=== PATIENT | female | born 1965 | race Caucasian/White ===

== ENCOUNTER 2018-05-06 18:04 | Emergency (ER) | payer BC ==
[2018-05-06] MEDS ORDERED: Sodium Chloride 0.9% 10 ML Syringe FLUSH PRN (19:33)
[2018-05-06] MEDS ORDERED: Alum Hydrox/Mag Hydrox/Simeth 30 ML, Lidocaine 2% 15 ML PO ONE ×2 (19:34)
--- NOTE | 2018-05-06 19:42 | EDM.PDOC ---
ED HPI GENERAL MEDICAL PROBLEM - General Chief Complaint: Abdominal Pain Stated Complaint: ABDOMINAL AND BACK PAIN Time Seen by Provider: 05/06/18 19:23 Source of Information: Reports: Patient History Limitations: Reports: No Limitations - History of Present Illness INITIAL COMMENTS - FREE TEXT/NARRATIVE: Patient is a 53-year-old female presents ED complaining of diarrhea for the past 3 days. States today she's only had 2 bowel movements. The last 2 days she' s had 10-12 episodes. Low volume with no blood present. Denies any ingestion of bad or questionable food, recent out of country travel, or recent sick exposures. She does have a history constipation and notes this has been a chronic issue for the past 15 years. She stopped taking MiraLAX approximately 2 weeks ago since it was not really working. In addition she's been having some epigastric tenderness with bloating. This is chronic as well. Also developed some mid thoracic back discomfort between her shoulders. States the back discomfort has been present for the past few months. Comes and goes most notably worse with constipation. As for the abdominal complaints and constipation there is nothing new. Normally her stools are hard but do waxing wane with diarrhea. States discomforts are getting slightly worse. She denies any acid reflux. There is no fever or chills. No nausea or vomiting. Skin no blood in her stools. Patient has not been following up with her PCP. 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 She also denies any recent antibiotic use. She has a history of hand swelling and thus is on HCTZ. She's had her gallbladder removed. She's had a tubal ligation. Colonoscopy in July 2018 with nothing found. She does not smoke. Alcohol use is minimal. Recreational drug use none. Upper Back Pain Score (Numeric/FACES): 9 - Related Data Allergies Allergy/AdvReac Type Severity Reaction Status Date / Time Penicillins Allergy Cannot Verified 05/06/18 20:06 Remember Home Meds: Home Meds Water Pill. 1 tab PO DAILY 05/06/18 [History] Past Medical History Gastrointestinal History: Reports: Irritable Bowel Syndrome Other [employer] History: tubes tied - Infectious Disease History Infectious Disease History: Reports: Chicken Pox - Past Surgical History GI Surgical History: Reports: Colonoscopy, EGD Other GI Surgeries/Procedures: colonoscopy january 2018 Social & Family History - Family History Family Medical History: Noncontributory - Tobacco Use Smoking Status *Q: Never Smoker Second Hand Smoke Exposure: No - Caffeine Use Caffeine Use: Reports: None - Alcohol Use Days Per Week of Alcohol Use: 1 Number of Drinks Per Day: 1 Total Drinks Per Week: 1 - Recreational Drug Use Recreational Drug Use: No ED ROS GENERAL - Review of Systems Review Of Systems: ROS reveals no pertinent complaints other than HPI. Constitutional: Reports: No Symptoms HEENT: Reports: No Symptoms Respiratory: Denies: Shortness of Breath, Wheezing, Pleuritic Chest Pain, Cough , Sputum, Hemoptysis Cardiovascular: Reports: No Symptoms GI/Abdominal: Reports: Abdominal Pain, Constipation, Diarrhea, Distension, Flatus, Nausea. Denies: Black Stool, Bloody Stool, Decreased Appetite, Difficulty Swallowing, Hematemesis, Hematochezia, Vomiting : Reports: No Symptoms Musculoskeletal: Reports: Back Pain (mid thoracic back pain) Skin: Reports: No Symptoms Neurological: Reports: No Symptoms ED EXAM, GI/ABD - Physical Exam Exam: See Below Exam Limited By: No Limitations General Appearance: Alert, WD/WN, No Apparent Distress Ears: Hearing Grossly Normal Nose: Normal Inspection Throat/Mouth: Normal Voice, No Airway Compromise Neck: Normal Inspection, Supple Respiratory/Chest: No Respiratory Distress, Lungs Clear, Normal Breath Sounds, Chest Non-Tender Cardiovascular: Normal Peripheral Pulses, Regular Rate, Rhythm GI/Abdominal Exam: Soft, Non-Tender, No Organomegaly, No Distention, Abnormal Bowel Sounds (hyperactive) Back Exam: Normal Inspection. No: CVA Tenderness (L), CVA Tenderness (R) Extremities: Normal Inspection, Normal Range of Motion, Non-Tender Neurological: Alert, Oriented, CN II-XII Intact, Normal Cognition, No Motor/ Sensory Deficits Psychiatric: Normal Affect, Normal Mood Skin Exam: Warm, Dry, Intact, Normal Color Course - Vital Signs Last Recorded V/S: Last Vital Signs Temp 98.8 F 05/06/18 18:07 Pulse 74 05/06/18 18:07 Resp 20 05/06/18 18:07 BP 126/81 05/06/18 18:07 Pulse Ox 99 05/06/18 18:07 - Orders/Labs/Meds Orders: Active Orders 24 hr Category Date Time Status EKG 12 Lead [EKG Documentation Completion] [RC] STAT Care 05/06/18 19:33 Active Peripheral IV Care [RC] . DIRECTED Care 05/06/18 19:33 Active Abdomen Series w Chest 1V [CR] Stat Exams 05/06/18 19:35 Taken Peripheral IV Insertion Adult [OM.PC] Routine Oth 05/06/18 19:33 Ordered Labs: Laboratory Tests 05/06/18 05/06/18 05/06/18 Range/Units 19:59 19:59 19:59 WBC 9.25 (3.98-10.04) K/mm3 RBC 4.23 (3.98-5.22) M/mm3 Hgb 12.6 (11.2-15.7) gm/L Hct 36.8 (34.1-44.9) % MCV 87.0 (79.4-94.8) fl MCH 29.8 (25.6-32.2) pg MCHC 34.2 (32.2-35.5) g/dl RDW Std Deviation 41.4 (36.4-46.3) fL Plt Count 378 H (182-369) K/mm3 MPV 9.6 (9.4-12.3) fl Neutrophils % (Manual) 56 (40-60) % Band Neutrophils % 0 (0-10) % Lymphocytes % (Manual) 35 (20-40) % Atypical Lymphs % 4 % Monocytes % (Manual) 4 (2-10) % Eosinophils % (Manual) 1 (0.7-5.8) % Basophils % (Manual) 0 L (0.1-1.2) Platelet Estimate Adequate Plt Morphology Comment Normal RBC Morph Comment Normal Sodium 140 (136-145) mEq/L Potassium 3.3 L (3.5-5.1) mEq/L Chloride 104 (98-107) mEq/L Carbon Dioxide 25 (21-32) mEq/L Anion Gap 14.3 (5-15) BUN 14 (7-18) mg/dL Creatinine 0.9 (0.55-1.02) mg/dL Est Cr Clr Drug Dosing 59.80 mL/min Estimated GFR (MDRD) > 60 (>60) mL/min BUN/Creatinine Ratio 15.6 (14-18) Glucose 91 (74-106) mg/dL Calcium 8.9 (8.5-10.1) mg/dL Total Bilirubin 0.2 (0.2-1.0) mg/dL AST 15 (15-37) U/L ALT 23 (14-59) U/L Alkaline Phosphatase 45 L (46-116) U/L Troponin I < 0.017 (0.00-0.056) ng/mL C-Reactive Protein 3.7 H* (<1.0) mg/dL Total Protein 7.3 (6.4-8.2) g/dl Albumin 3.2 L (3.4-5.0) g/dl Globulin 4.1 gm/dL Albumin/Globulin Ratio 0.8 L (1-2) Lipase 185 (73-393) U/L TSH 3rd Generation 4.444 H (0.358-3.74) uIU/mL Urine Color (Yellow) Urine Appearance (Clear) Urine pH (5.0-8.0) Ur Specific Sawyer (1.005-1.030) Urine Protein (Negative) Urine Glucose (UA) (Negative) Urine Ketones (Negative) Urine Occult Blood (Negative) Urine Nitrite (Negative) Urine Bilirubin (Negative) Urine Urobilinogen (0.2-1.0) Ur Leukocyte Esterase (Negative) Urine RBC (0-5) /hpf Urine WBC (0-5) /hpf Ur Epithelial Cells (0-5) /hpf Urine Bacteria (FEW) /hpf Urine Mucus (FEW) /hpf 05/06/18 Range/Units 20:41 WBC (3.98-10.04) K/mm3 RBC (3.98-5.22) M/mm3 Hgb (11.2-15.7) gm/L Hct (34.1-44.9) % MCV (79.4-94.8) fl MCH (25.6-32.2) pg MCHC (32.2-35.5) g/dl RDW Std Deviation (36.4-46.3) fL Plt Count (182-369) K/mm3 MPV (9.4-12.3) fl Neutrophils % (Manual) (40-60) % Band Neutrophils % (0-10) % Lymphocytes % (Manual) (20-40) % Atypical Lymphs % % Monocytes % (Manual) (2-10) % Eosinophils % (Manual) (0.7-5.8) % Basophils % (Manual) (0.1-1.2) Platelet Estimate Plt Morphology Comment RBC Morph Comment Sodium (136-145) mEq/L Potassium (3.5-5.1) mEq/L Chloride (98-107) mEq/L Carbon Dioxide (21-32) mEq/L Anion Gap (5-15) BUN (7-18) mg/dL Creatinine (0.55-1.02) mg/dL Est Cr Clr Drug Dosing mL/min Estimated GFR (MDRD) (>60) mL/min BUN/Creatinine Ratio (14-18) Glucose (74-106) mg/dL Calcium (8.5-10.1) mg/dL Total Bilirubin (0.2-1.0) mg/dL AST (15-37) U/L ALT (14-59) U/L Alkaline Phosphatase (46-116) U/L Troponin I (0.00-0.056) ng/mL C-Reactive Protein (<1.0) mg/dL Total Protein (6.4-8.2) g/dl Albumin (3.4-5.0) g/dl Globulin gm/dL Albumin/Globulin Ratio (1-2) Lipase (73-393) U/L TSH 3rd Generation (0.358-3.74) uIU/mL Urine Color Yellow (Yellow) Urine Appearance Clear (Clear) Urine pH 6.0 (5.0-8.0) Ur Specific Sawyer > or = 1.030 (1.005-1.030) Urine Protein Negative (Negative) Urine Glucose (UA) Negative (Negative) Urine Ketones Negative (Negative) Urine Occult Blood Negative (Negative) Urine Nitrite Negative (Negative) Urine Bilirubin Negative (Negative) Urine Urobilinogen 0.2 (0.2-1.0) Ur Leukocyte Esterase Negative (Negative) Urine RBC 0-5 (0-5) /hpf Urine WBC 0-5 (0-5) /hpf Ur Epithelial Cells 0-5 (0-5) /hpf Urine Bacteria Few (FEW) /hpf Urine Mucus Many H (FEW) /hpf Meds: Medications Discontinued Medications Generic Name Dose Route Start Last Admin Trade Name Freq PRN Reason Stop Dose Admin Al Hydroxide/Mg Hydroxide 30 0 ml 05/06/18 19:34 05/06/18 20:05 ml/ Lidocaine HCl 15 ml PO 05/06/18 19:35 45 ml ONETIME ONE Administration Sodium Chloride 10 ml 05/06/18 19:33 05/06/18 20:06 Saline Flush FLUSH 10 ml ASDIRECTED PRN Administration Keep Vein Open - Re-Assessments/Exams Free Text/Narrative Re-Assessment/Exam: IV established. Initial labs will include: CBC, chem 14, troponin, CRP, lipase, UA, Chest/abdomen series, and EKG. EKG: Sinus rhythm rate of 67. No acute ST changes noted. CHEST x-ray: No acute findings noted. Reviewed with Dr. Alvarenga. Abdominal x-ray: Non specific air and stool pattern. Few air fluid levels present within in normal limits. Reviewed with Dr. Alvarenga. 05/06/18 2100 Reassessment, patient's symptoms are improving. States the back discomfort persists. With palpation pain does improve with palpation along the thoracic spine. No soft tissue swelling, no bruising, no bony abnormalities noted. With further discussion patient states she's been getting massages every day and performing stretches for her back. Pain does worsen with bending over and working at her computer for extended periods of time. She's been seen multiple times for this. In addition on examination her abdomen is soft nontender with hyperactive bowel sounds. I did discuss results of labs and x- ray with the patient. She'll continue on her MiraLAX as previously instructed. She's had no bowel movements with examination here in the ED. Low probability related to C. difficile, and/or other infectious pathogens. She has no previous history exposure. Denies any history of drinking bad water. She will be her for the next 3 months. I have asked her to follow up with PCP locally and establish medical care. She was questioning options for being evaluated by a GI specialist. I advised her to call and make an appt with a GI specialists at [facility] or [facility] of her choosing. Patient admits this a chronic issue with unclear etiology. We discussed IBS to which at one point she was diagnosed with IBS. She's currently on no medications. Patient will be discharged home with instructions as documented. The patient remained hemodynamically stable while under my care in the E.D. I discussed the concerning symptoms for which to returnto the E.D. with the patient. The patient verbalized understanding. All questions were answered. Departure - Departure Time of Disposition: 21:21 Disposition: Home, Self-Care 01 Condition: Good Clinical Impression: Elevated TSH Abdominal pain Qualifiers: Abdominal location: generalized Qualified Code(s): R10.84 - Generalized abdominal pain Diarrhea Qualifiers: Diarrhea type: unspecified type Qualified Code(s): R19.7 - Diarrhea, unspecified Constipation Qualifiers: Constipation type: unspecified constipation type Qualified Code(s): K59.00 - Constipation, unspecified Chronic thoracic back pain Qualifiers: Back pain laterality: midline Qualified Code(s): M54.6 - Pain in thoracic spine - Discharge Information Instructions: Abdominal Pain, Adult, Back Pain, Adult, Constipation, Adult, [id number], Back Exercises, Diet for Irritable Bowel Syndrome, Chronic Pain, Adult, Diarrhea, Adult, [id number], Irritable Bowel Syndrome, Adult Referrals: PCP,Not In Area [Primary Care Provider] - Forms: ED Department Discharge Additional Instructions: Do not have a clear etiology to her current complaint. Diarrhea appears to be improving. Pain to her abdomen and thoracic back is chronic with no clear etiology. Please follow up with a PCP here locally in established medical care. May call a GI specialist in [place] at [facility] or [place] of your choosing and schedule appointment for evaluation. Suggest sticking with MiraLAX one capful every day with juice. Push the fluids. Eat a diet high in fiber. Refrain from any activities that cause worsening discomfort. Continue to utilize massage, stretches, strengthening exercises, and [id number] medications for pain. Return to the ED if you develop any new or worsening symptoms. In addition your TSH levels were elevated suggesting he may have hypothyroidism. This can contribute to losing your hair, constipation, being cold, and fatigue. See your PCP for treatment. - My Orders Last 24 Hours: My Active Orders 05/06/18 19:33 EKG 12 Lead [EKG Documentation Completion] [RC] STAT Peripheral IV Care [RC] . DIRECTED Peripheral IV Insertion Adult [OM.PC] Routine 05/06/18 19:35 Abdomen Series w Chest 1V [CR] Stat - Assessment/Plan Last 24 Hours: My Active Orders 05/06/18 19:33 EKG 12 Lead [EKG Documentation Completion] [RC] STAT Peripheral IV Care [RC] . DIRECTED Peripheral IV Insertion Adult [OM.PC] Routine 05/06/18 19:35 Abdomen Series w Chest 1V [CR] Stat
--- NOTE | 2018-05-11 07:30 | CR ---
Abdominal series: Supine and upright views of the abdomen were obtained as well as frontal view of the chest. Comparison: No previous study. Heart size and mediastinum are normal. Lungs are clear. Surgical clips are seen from prior cholecystectomy. Scattered gas noted within small bowel which is slightly prominent. Scattered stool and gas noted within colon. Deformity of the left iliac wing is seen compatible with old fracture. Calcifications are seen within the pelvis which are compatible with phleboliths. Incidental calcification is noted off the superior left greater tuberosity of the left hip. No free air is seen. Impression: 1. Slightly prominent air-filled small bowel. Mild gastroenteritis is possible. Differential also includes mild small bowel ileus. 2. Other incidental findings. Diagnostic code #3
== END 2018-05-06 21:42 | disposition home or self-care (01) ==
LOC: JD.ED 18:04
DX: K59.00 Constipation, unspecified (principal); R94.6 Abnormal results of thyroid function studies; R19.7 Diarrhea, unspecified; M54.6 Pain in thoracic spine; Z88.0 Allergy status to penicillin
CPT/HCPCS: 36415; 74022; 80053; 81001; 83690; 84443; 84484; 85007; 85027; 86140; 93005; 99284; A9270; J7050; 93010